=== PATIENT | male | born 1990 | race Caucasian/White ===

== ENCOUNTER → 2019-01-30 15:51 | Outpatient (CLI) | payer OTHER, SELFPAY ==
[2019-01-30 17:31] LABS: Thyroid Stim Hormone (TSH) 1.07 uIU/mL (0.358-3.74)
== END ==
PROVIDERS: Family Provider Family Medicine; PCP Family Medicine; Referring Provider Family Medicine; Visit Provider Family Medicine
DX: N46.9 Male infertility, unspecified (principal)
CPT/HCPCS: 36415; 84403; 84443